=== PATIENT | female | born 1955 | race African-American/Black ===

== ENCOUNTER 2023-12-24 10:01 | Inpatient (IN) | payer MEDICAID ==
[~2023-12-24] VITALS: Ht 165.1 cm; Wt 55.3 kg
[~2023-12-24 10:01] MED LIST: ASPI-1160 PO; FURO20TA4 PO; FURO40TA5 PO; POTA-204 PO
[2023-12-24 10:48] LABS: BASOPHILS % 0.6 % (0.0-2.0); EOSINOPHILS % 0.7 % (0.0-5.0); HEMATOCRIT. 37.5 % (36.0-48.0); LYMPHOCYTES % 22.8 % (20.0-50.0); MEAN CORPUSCULAR HEMOGLOBIN 31.1 pg (28.0-32.0); MEAN CORPUSCULAR HGB CONC 32.1 g/dL (31.0-37.0); MEAN CORPUSCULAR VOLUME 96.8 fL (81.0-99.0); MEAN PLATELET VOLUME 9.5 fl (7.4-10.4); MONOCYTES % 8.2 % (2.0-8.0); NEUTROPHILS % 67.7 % (40.0-76.0); PLATELET 218 x1000/uL (130-400); RED BLOOD CELL COUNT 3.87 mill/uL (4.2-5.4); RED CELL DISTRIBUTION WIDTH 15.8 % (11.6-14.6); WHITE BLOOD COUNT 5.3 x1000/uL (4.5-11.0)
[2023-12-24 11:00] LABS: TROPONIN I HIGH SENSITIVITY 18 ng/L (3.0-34)
[2023-12-24] MEDS ORDERED: FUROSEMIDE 40MG/4ML VIAL IVP ONE (11:15)
[2023-12-24] MEDS ORDERED: ONDANSETRON HCL 4MG/2ML INJ IV PRN (12:15)
[2023-12-24] MEDS ORDERED: ACETAMINOPHEN 325MG TABLET PO PRN ×2 (12:15)
[2023-12-24] MEDS ORDERED: CLONIDINE 0.1MG TABLET PO PRN (12:15)
[2023-12-24] MEDS ORDERED: IPRATROPIUM/ALBUTEROL 0.5-3(2.5)MG/3ML NEB HHN PRN (12:15)
[2023-12-24] MEDS ORDERED: MAGNESIUM/ALUMINUM HYDROXIDE/SIMETHICONE 30ML UDC PO PRN (12:15)
[2023-12-24] MEDS ORDERED: GUAIFENESIN 200MG/10ML SUGAR FREE UDC PO PRN (12:15)
[2023-12-24] MEDS ORDERED: DOCUSATE SODIUM 100MG CAPSULE PO PRN (12:15)
[2023-12-24 13:11] VITALS: PULSE 92; RESP 16; O2SAT 92
[2023-12-24] MEDS: IPRATROPIUM BROMIDE (0.02%) 0.5MG/2.5ML NEB HHN STA (13:11)
[2023-12-24] MEDS: ALBUTEROL (0.083%) 2.5MG/3ML NEB HHN STA (13:11)
[2023-12-24 13:15] LABS: CARBON DIOXIDE 21 mEq/L (21-32); CHLORIDE 109 mEq/L (98-107); POTASSIUM 4.1 mEq/L (3.5-5.1); SODIUM 140 mEq/L (136-145)
[2023-12-24 13:16] LABS: CALCIUM 9.4 mg/dL (8.7-10.4)
[2023-12-24 13:17] LABS: TROPONIN I HIGH SENSITIVITY 21 ng/L (3.0-34)
[2023-12-24 13:20] LABS: CREATININE 0.9 mg/dL (0.6-1.0)
[2023-12-24 13:21] LABS: GLUCOSE 93 mg/dL (70-105); UREA NITROGEN BLOOD 16 mg/dL (9-23)
[2023-12-24 13:22] LABS: ALANINE AMINOTRANSFERASE 24 IU/L (10-49); ASPARTATE AMINOTRANSFERASE 38 IU/L (<34)
[2023-12-24 13:23] LABS: ALBUMIN 4.5 g/dL (3.2-4.8); BILIRUBIN TOTAL 0.9 mg/dL (0.1-1.0); PROTEIN TOTAL 7.9 g/dL (6.0-8.3)
[2023-12-24] MEDS: FUROSEMIDE 40MG/4ML VIAL IVP NR (13:38)
[2023-12-24] MEDS: MAGNESIUM 2 G PREMIX 50 ML IV NR (13:45)
[2023-12-24] MEDS: ENOXAPARIN 40MG/0.4ML SYR SUBCUT SCH (14:00)
[2023-12-24 15:54] LABS: TROPONIN I HIGH SENSITIVITY 23 ng/L (3.0-34)
[2023-12-24 19:35] LABS: CREATINE KINASE 49 IU/L (34-145)
[2023-12-24] MEDS ORDERED: FUROSEMIDE 40MG/4ML VIAL IV SCH (21:00)
[2023-12-24] MEDS: FAMOTIDINE 20MG TABLET PO SCH (21:32)
[2023-12-24] MEDS: FUROSEMIDE 40MG/4ML VIAL IVP SCH (21:32)
[2023-12-24] MEDS: ATORVASTATIN CALCIUM 20MG TABLET PO SCH (21:32)
[2023-12-24 22:00] VITALS: BP 96/68; PULSE 96; RESP 18; TEMP 37.0852
[2023-12-25] VITALS: BP 84/44; PULSE 85; RESP 19; TEMP 36.6696; O2SAT 100
[2023-12-25 00:17] LABS: TROPONIN I HIGH SENSITIVITY 26 ng/L (3.0-34)
[2023-12-25 00:18] LABS: CREATINE KINASE 47 IU/L (34-145)
[2023-12-25 04:00] VITALS: BP 85/48; PULSE 85; RESP 19; TEMP 36.89184; O2SAT 99
[2023-12-25 06:34] LABS: BASOPHILS % 0.6 % (0.0-2.0); DIFFERENTIAL COMMENT 0; EOSINOPHILS % 3.6 % (0.0-5.0); HEMATOCRIT. 36.7 % (36.0-48.0); HEMOGLOBIN. 12.1 g/dL (12.0-16.0); LYMPHOCYTES % 33.3 % (20.0-50.0); MEAN CORPUSCULAR HEMOGLOBIN 30.9 pg (28.0-32.0); MEAN CORPUSCULAR HGB CONC 32.8 g/dL (31.0-37.0); MEAN CORPUSCULAR VOLUME 94.1 fL (81.0-99.0); MEAN PLATELET VOLUME 10.3 fl (7.4-10.4); MONOCYTES % 11.8 % (2.0-8.0); NEUTROPHILS % 50.7 % (40.0-76.0); PLATELET 226 x1000/uL (130-400); RED CELL DISTRIBUTION WIDTH 15.5 % (11.6-14.6); WHITE BLOOD COUNT 5.4 x1000/uL (4.5-11.0)
[2023-12-25 06:36] LABS: CALCIUM 8.9 mg/dL (8.7-10.4); CARBON DIOXIDE 26 mEq/L (21-32); CHLORIDE 106 mEq/L (98-107); POTASSIUM 3.1 mEq/L (3.5-5.1); SODIUM 141 mEq/L (136-145)
[2023-12-25 06:41] LABS: CREATININE 0.9 mg/dL (0.6-1.0); GLUCOSE 73 mg/dL (70-105)
[2023-12-25 06:42] LABS: TRIGLYCERIDE 81 mg/dL (0-150); UREA NITROGEN BLOOD 16 mg/dL (9-23)
[2023-12-25 06:43] LABS: CHOLESTEROL 160 mg/dL (<200); HDL CHOLESTEROL 47 mg/dL (>65); LDL CHOLESTEROL 102 mg/dL (5-100)
[2023-12-25 06:44] LABS: PHOSPHORUS 4.6 mg/dL (2.5-4.9)
[2023-12-25 06:48] LABS: T4 FREE 1.24 ng/dL (0.89-1.76); THYROID STIMULATING HORMONE 0.89 uIU/mL (0.55-4.78)
[2023-12-25 08:00] VITALS: BP 102/61; PULSE 80; RESP 18; TEMP 36.05844; O2SAT 98
[2023-12-25] MEDS: POTASSIUM CHLORIDE 20MEQ/PACKET PO NR (10:01)
[2023-12-25] MEDS: ASPIRIN 81MG EC TABLET PO SCH (10:01)
[2023-12-25 12:00] VITALS: BP 86/56; PULSE 85; RESP 18; TEMP 36.22512; O2SAT 98
[2023-12-25 16:00] VITALS: BP 89/56; PULSE 87; RESP 18; TEMP 36.28068; O2SAT 99
[2023-12-25] MEDS: FUROSEMIDE 40MG/4ML VIAL IVP SCH (17:15)
[2023-12-25 20:00] VITALS: BP 86/53; PULSE 91; RESP 19; TEMP 36.55848; O2SAT 96
[2023-12-26] VITALS: BP 128/62; PULSE 85; RESP 19; TEMP 36.72516; O2SAT 100
[2023-12-26 04:00] VITALS: BP 90/51; PULSE 82; RESP 18; TEMP 36.6696; O2SAT 100
[2023-12-26 06:20] LABS: CHLORIDE 108 mEq/L (98-107); POTASSIUM 3.6 mEq/L (3.5-5.1); SODIUM 143 mEq/L (136-145)
[2023-12-26 06:21] LABS: CALCIUM 9.1 mg/dL (8.7-10.4); CARBON DIOXIDE 27 mEq/L (21-32)
[2023-12-26 06:26] LABS: CREATININE 0.9 mg/dL (0.6-1.0); GLUCOSE 73 mg/dL (70-105); UREA NITROGEN BLOOD 21 mg/dL (9-23)
[2023-12-26 06:34] LABS: BASOPHILS % 0.7 % (0.0-2.0); EOSINOPHILS % 4.5 % (0.0-5.0); HEMATOCRIT. 38.3 % (36.0-48.0); HEMOGLOBIN. 12.5 g/dL (12.0-16.0); MEAN CORPUSCULAR HEMOGLOBIN 30.9 pg (28.0-32.0); MEAN CORPUSCULAR HGB CONC 32.6 g/dL (31.0-37.0); MEAN CORPUSCULAR VOLUME 94.8 fL (81.0-99.0); MEAN PLATELET VOLUME 10.4 fl (7.4-10.4); MONOCYTES % 11.8 % (2.0-8.0); PLATELET 225 x1000/uL (130-400); RED BLOOD CELL COUNT 4.04 mill/uL (4.2-5.4); RED CELL DISTRIBUTION WIDTH 15.6 % (11.6-14.6); WHITE BLOOD COUNT 4.4 x1000/uL (4.5-11.0)
[2023-12-26 06:43] LABS: DIFFERENTIAL COMMENT 1
[2023-12-26 08:00] VITALS: BP 95/71; PULSE 95; RESP 18; TEMP 36.50292; O2SAT 95
[2023-12-26] MEDS ORDERED: ASPI-1160 PO (11:25)
[2023-12-26] MEDS ORDERED: POTA-204 PO ×2 (11:25→11:34)
[2023-12-26] MEDS ORDERED: ATOR20TA PO (11:25)
[2023-12-26] MEDS ORDERED: FURO40TA5 PO (11:25)
[2023-12-26] MEDS ORDERED: ASPI-1406 PO (11:25)
[2023-12-26 12:00] VITALS: BP 97/62; PULSE 91; RESP 18; TEMP 36.55848; O2SAT 96
[2023-12-26] MEDS ORDERED: ENOXAPARIN 30MG/0.3ML SYR SUBCUT SCH (14:00)
[2023-12-26 14:20] VITALS: BP 102/58; PULSE 80; TEMP 97.9; O2SAT 98
== END 2023-12-26 15:15 | disposition home or self-care (01) | DRG 194 ==
LOC: ER 10:01 → EDBEDREQ 14:39 → 7EST 23:10
PROVIDERS: ADMIT Internal Medicine; ATTEND Internal Medicine
DX: I11.0 Hypertensive heart disease with heart failure (principal); J96.00 Acute respiratory failure, unspecified whether with hypoxia or hypercapnia; I42.0 Dilated cardiomyopathy; I50.23 Acute on chronic systolic (congestive) heart failure; E78.5 Hyperlipidemia, unspecified; Z20.822 Contact with and (suspected) exposure to COVID-19; Z91.199 Patient's noncompliance with other medical treatment and regimen due to unspecified reason; Z91.148 Patient's other noncompliance with medication regimen for other reason; Z88.5 Allergy status to narcotic agent; Z88.0 Allergy status to penicillin; Z79.899 Other long term (current) drug therapy; Z59.01 Sheltered homelessness
CPT/HCPCS: 36415; 71045; 80048; 80053; 80061; 82550; 83036; 83735; 83880; 84100; 84439; 84443; 84484; 85025; 87426; 87804; 93005; 94640; J1650; J1940; J3475

== ENCOUNTER 2024-03-10 10:43 | Inpatient (IN) | payer MEDICAID ==
[~2024-03-10] VITALS: Ht 154.9 cm; Wt 59.9 kg
[~2024-03-10 10:43] MED LIST changes: +ASPI-1406 PO; +ATOR20TA PO; +ATOR20TA65 PO; +FURO-151 PO; -FURO20TA4 PO; +LOSA25TA26 PO
[2024-03-10 11:55] LABS: BASOPHILS % 0.5 % (0.0-2.0); DIFFERENTIAL COMMENT 0; EOSINOPHILS % 3.1 % (0.0-5.0); HEMATOCRIT. 35.3 % (36.0-48.0); HEMOGLOBIN. 11.2 g/dL (12.0-16.0); LYMPHOCYTES % 30.7 % (20.0-50.0); MEAN CORPUSCULAR HEMOGLOBIN 29.6 pg (28.0-32.0); MEAN CORPUSCULAR HGB CONC 31.7 g/dL (31.0-37.0); MEAN CORPUSCULAR VOLUME 93.2 fL (81.0-99.0); MEAN PLATELET VOLUME 9.6 fl (7.4-10.4); MONOCYTES % 13.6 % (2.0-8.0); NEUTROPHILS % 52.1 % (40.0-76.0); PLATELET 253 x1000/uL (130-400); RED BLOOD CELL COUNT 3.79 mill/uL (4.2-5.4); RED CELL DISTRIBUTION WIDTH 17.1 % (11.6-14.6); WHITE BLOOD COUNT 5.1 x1000/uL (4.5-11.0)
[2024-03-10 12:01] LABS: CHLORIDE 110 mEq/L (98-107); POTASSIUM 4.4 mEq/L (3.5-5.1); SODIUM 139 mEq/L (136-145)
[2024-03-10 12:02] LABS: CARBON DIOXIDE 21 mEq/L (21-32)
[2024-03-10 12:03] LABS: CALCIUM 9.5 mg/dL (8.7-10.4)
[2024-03-10 12:07] LABS: CREATININE 1.1 mg/dL (0.6-1.0); GLUCOSE 97 mg/dL (70-105)
[2024-03-10 12:08] LABS: TROPONIN I HIGH SENSITIVITY 24 ng/L (3.0-34); UREA NITROGEN BLOOD 40 mg/dL (9-23)
[2024-03-10] MEDS: METHYLPREDNISOLONE SOD SUCC 125MG/2ML (ACT-O-VIAL) IV STA (13:13)
[2024-03-10 13:35] VITALS: PULSE 68; RESP 24
[2024-03-10] MEDS: ALBUTEROL (0.083%) 2.5MG/3ML NEB HHN STA (14:11)
[2024-03-10] MEDS: IPRATROPIUM BROMIDE (0.02%) 0.5MG/2.5ML NEB HHN STA (14:11)
[2024-03-10] MEDS ORDERED: DOCUSATE SODIUM 100MG CAPSULE PO PRN (14:45)
[2024-03-10] MEDS ORDERED: GUAIFENESIN 200MG/10ML SUGAR FREE UDC PO PRN (14:45)
[2024-03-10] MEDS ORDERED: CLONIDINE 0.1MG TABLET PO PRN (14:45)
[2024-03-10] MEDS ORDERED: ONDANSETRON HCL 4MG/2ML INJ IV PRN (14:45)
[2024-03-10] MEDS ORDERED: IPRATROPIUM/ALBUTEROL 0.5-3(2.5)MG/3ML NEB HHN PRN (14:45)
[2024-03-10] MEDS ORDERED: ACETAMINOPHEN 325MG TABLET PO PRN (14:45)
[2024-03-10] MEDS: FUROSEMIDE 40MG/4ML VIAL IVP NR (15:09)
[2024-03-10] MEDS: MIDODRINE HCL 5MG TABLET PO SCH (15:09)
[2024-03-10 15:25] VITALS: PULSE 73; RESP 20
[2024-03-10] MEDS: IPRATROPIUM/ALBUTEROL 0.5-3(2.5)MG/3ML NEB HHN SCH (15:25)
[2024-03-10 20:49] LABS: IRON 27 ug/dL (50-170)
[2024-03-10 20:50] LABS: TRIGLYCERIDE 71 mg/dL (0-150)
[2024-03-10 20:51] LABS: LDL CHOLESTEROL 52 mg/dL (5-100)
[2024-03-10 20:52] LABS: CHOLESTEROL 107 mg/dL (<200); HDL CHOLESTEROL 38 mg/dL (>65)
[2024-03-10 20:53] LABS: TOTAL IRON BINDING CAPACITY 398 ug/dl (250-425)
[2024-03-10 20:54] LABS: FERRITIN 39 ng/mL (10-291); VITAMIN B12 SERUM 902 pg/mL (211-911)
[2024-03-10 21:56] LABS: CLARITY URINE CLEAR (CLEAR); COLOR URINE YELLOW (YELLOW); GLUCOSE URINE 3+ (NEGATIVE); KETONES URINE NEGATIVE (NEGATIVE); LEUKOCYTE ESTERASE URINE 1+ (NEGATIVE); NITRITE URINE NEGATIVE (NEGATIVE); OCCULT BLOOD URINE NEGATIVE (NEGATIVE); PH URINE 5.5 (4.5-8.0); PROTEIN URINE NEGATIVE (NEGATIVE); SPECIFIC GRAVITY URINE 1.023 (1.005-1.030); UROBILINOGEN URINE 0.2 E.U./dL (0.2-1.0)
[2024-03-10 22:00] VITALS: BP 103/52; PULSE 79; RESP 18; TEMP 36.5848
[2024-03-10 22:14] LABS: BG BASE EXCESS 0.7 mmol/L (-2.0-3.0); BG CARBOXYHEMOGLOBIN 1.2 % (0.5-1.5); BG DEOXYHEMOGLOBIN 10.6 % (0.0-5.0); BG FRACTION INSPIRED OXYGEN 28; BG HCO3 ACT 28.3 mmol/L (21.0-28.0); BG METHEMOGLOBIN 0.3 % (0.5-1.5); BG OXYGEN SATURATION 89.2 % (94.0-98.0); BG OXYHEMOGLOBIN 87.9 % (94.0-98.0); BG PCO2 55.9 mmHg (32.0-45.0); BG PH 7.323 (7.350-7.450); BG PO2 62.1 mmHg (83.0-108.0); BG SAMPLE SITE RIGHT BRACHIAL; BG TOTAL HEMOGLOBIN 18.5 g/dL (12.0-16.0); BG VENT MODE NASAL CANNULA
[2024-03-10 22:22] LABS: BACTERIA URINE 1+; RBC URINE 0-2 /hpf (0-2); SQUAMOUS EPITHELIAL CELL URINE 1+ /lpf (RARE/1+)
[2024-03-10] MEDS ORDERED: LEVOFLOXACIN 750MG PREMIX 150 ML IV SCH (23:00)
[2024-03-10] MEDS: ATORVASTATIN CALCIUM 20MG TABLET PO SCH (23:27)
[2024-03-11] MEDS: LEVOFLOXACIN 500MG PREMIX 100 ML IV SCH (00:20)
[2024-03-11] MEDS: LEVOFLOXACIN 250MG PREMIX 50 ML IV SCH (01:20)
[2024-03-11] MEDS: ACETAMINOPHEN 325MG TABLET PO PRN (05:52)
[2024-03-11 06:58] LABS: CARBON DIOXIDE 18 mEq/L (21-32); CHLORIDE 109 mEq/L (98-107); POTASSIUM 4.6 mEq/L (3.5-5.1); SODIUM 140 mEq/L (136-145)
[2024-03-11 06:59] LABS: CALCIUM 9.2 mg/dL (8.7-10.4)
[2024-03-11 07:04] LABS: GLUCOSE 208 mg/dL (70-105); UREA NITROGEN BLOOD 29 mg/dL (9-23)
[2024-03-11 07:06] LABS: T4 FREE 1.23 ng/dL (0.89-1.76); THYROID STIMULATING HORMONE 0.15 uIU/mL (0.55-4.78)
[2024-03-11] MEDS: FERROUS SULFATE 300MG/5ML UDC PO SCH (08:10)
[2024-03-11 08:33] VITALS: BP 71/48; PULSE 75; RESP 20; TEMP 36.44736; O2SAT 100
[2024-03-11] MEDS: ENOXAPARIN 40MG/0.4ML SYR SUBCUT SCH (09:00)
[2024-03-11] MEDS ORDERED: FUROSEMIDE 40MG/4ML VIAL IVP SCH (09:00)
[2024-03-11] MEDS: PANTOPRAZOLE 40MG DR TABLET PO SCH (09:28)
[2024-03-11] MEDS: ASPIRIN 81MG EC TABLET PO SCH (09:29)
[2024-03-11 10:18] LABS: BASOPHILS % 0.3 % (0.0-2.0); HEMATOCRIT. 34.4 % (36.0-48.0); HEMOGLOBIN. 10.9 g/dL (12.0-16.0); LYMPHOCYTES % 17.5 % (20.0-50.0); MEAN CORPUSCULAR HEMOGLOBIN 29.7 pg (28.0-32.0); MEAN CORPUSCULAR HGB CONC 31.8 g/dL (31.0-37.0); MEAN CORPUSCULAR VOLUME 93.4 fL (81.0-99.0); MEAN PLATELET VOLUME 10.4 fl (7.4-10.4); NEUTROPHILS % 80.2 % (40.0-76.0); PLATELET 224 x1000/uL (130-400); RED BLOOD CELL COUNT 3.68 mill/uL (4.2-5.4); RED CELL DISTRIBUTION WIDTH 17.1 % (11.6-14.6); WHITE BLOOD COUNT 3.8 x1000/uL (4.5-11.0)
[2024-03-11 12:00] VITALS: BP 82/49; PULSE 75; RESP 20; TEMP 36.00288; O2SAT 99
[2024-03-11 16:00] VITALS: BP 91/63; PULSE 71; RESP 18; TEMP 37.16964; O2SAT 99
[2024-03-11 20:00] VITALS: BP 98/66; PULSE 70; RESP 18; TEMP 36.22512; O2SAT 99
[2024-03-12] VITALS (10 sets, daily range): BP systolic 88–104; BP diastolic 47–68; PULSE 59–86; RESP 17–20; TEMP 36.28068–37.66968; O2SAT 97–100
[2024-03-12 06:59] LABS: CALCIUM 9.4 mg/dL (8.7-10.4)
[2024-03-12 07:02] LABS: CREATINE KINASE MB FRACTION 1.1 ng/mL (0.5-3.6)
[2024-03-12 07:05] LABS: CREATININE 1.2 mg/dL (0.6-1.0)
[2024-03-12 09:09] LABS: FOLATE HEMATOCRIT 34.5 % (34.0-46.6)
[2024-03-12] MEDS ORDERED: FLUT1DIS2 INH (10:17)
[2024-03-12] MEDS ORDERED: ALBU18HF2 IH (10:17)
[2024-03-12] MEDS ORDERED: MIDO10TA3 PO (10:21)
[2024-03-12 14:07] LABS: FOLATE RBC 1249 ng/mL (>498)
[2024-03-12] MEDS ORDERED: LEVOFLOXACIN 250MG TABLET PO SCH (21:00)
[2024-03-13] MEDS ORDERED: FAMOTIDINE 20MG TABLET PO SCH (09:00)
== END 2024-03-12 17:36 | disposition home or self-care (01) | DRG 194 ==
LOC: ER 10:44 → 7WST 13:27 → EDBEDREQ 13:36
PROVIDERS: ADMIT Internal Medicine; ATTEND Internal Medicine
DX: I11.0 Hypertensive heart disease with heart failure (principal); J96.00 Acute respiratory failure, unspecified whether with hypoxia or hypercapnia; N17.0 Acute kidney failure with tubular necrosis; J44.1 Chronic obstructive pulmonary disease with (acute) exacerbation; D64.9 Anemia, unspecified; E11.9 Type 2 diabetes mellitus without complications; E78.5 Hyperlipidemia, unspecified; N39.0 Urinary tract infection, site not specified; Z20.822 Contact with and (suspected) exposure to COVID-19; I50.43 Acute on chronic combined systolic (congestive) and diastolic (congestive) heart failure; I44.7 Left bundle-branch block, unspecified; Z59.01 Sheltered homelessness; Z79.82 Long term (current) use of aspirin; Z79.899 Other long term (current) drug therapy; Z86.73 Personal history of transient ischemic attack (TIA), and cerebral infarction without residual deficits; Z88.0 Allergy status to penicillin; Z99.81 Dependence on supplemental oxygen
CPT/HCPCS: 36415; 36600; 71045; 80048; 80061; 81003; 82375; 82550; 82553; 82607; 82728; 82747; 82805; 83036; 83540; 83550; 83880; 84145; 84439; 84443; 84484; 85014; 85025; 85379; 93005; 93306; 93970; 94070; 94640; 97165; 98960; 99285; J1650; J1940; J1956; J2919